=== PATIENT | female | born 1975 | race Two or more races ===

== ENCOUNTER 2016-07-22 06:40 | Inpatient (IN) | payer BC ==
[~2016-07-22] VITALS: Ht 165.1 cm; Wt 118.8 kg
--- NOTE | 2016-07-22 07:01 | NUR ---
PT PRESENTS TO ED WITH C/O INTERMITTENT SOB AND CHEST PAIN X1 WK. PT STATES PAIN RADIATES TO LOWER BACK. PT REPORTS LEFT ARM PAIN X1 DAY. PT REPORTS NAUSEA, DENIES V/D/C. RESPIRATIONS EVEN AND UNLABORED. NO ACUTE DISTRESS NOTED. BED IN LOW POSITION. CALL LIGHT WITHIN REACH.
--- NOTE | 2016-07-22 07:09 | NUR ---
REC'D REPORT FROM ITALO SYKES FOR CONTINUATION OF CARE. PT RECLINED ON [place] IN POSITION OF COMFORT. RESPS E/U. NO S/S OF DISTRESS NOTED. RT AT BEDSIDE FOR BLOOD GAS DRAW. WILL CONTINUE TO MONITOR.
--- NOTE | 2016-07-22 07:26 | NUR ---
MEDICATED ORDERED. PLEASE SEE EMR. ZOFRAN WITHHELD DUE TO PT STATING ALLERGY TO "ALL" ANTI-EMETICS. DR. FERNANDEZ MADE AWARE.
[2016-07-22 07:38] LABS: BASOPHIL % 0.9 % (0-2); PLATELET COUNT 277 x10^3mcL (130-400); RED CELL DISTRIBUTION WIDTH 13.1 % (11.5-14.5)
[2016-07-22 07:49] LABS: CARBON DIOXIDE 26.9 mmol/L (21-32); CHLORIDE SERUM 101 mmol/L (98-107); CREATININE SERUM 0.9 mg/dL (0.6-1.0); GFR1 > 60 mL/min; GLUCOSE SERUM 139 mg/dL (74-106); POTASSIUM SERUM 4.4 mmol/L (3.5-5.1); SODIUM SERUM 137 mmol/L (136-145)
[2016-07-22 08:00] LABS: ALBUMIN 3.7 g/dL (3.4-5.0); ALKALINE PHOSPHATASE 80 U/L (46-116); ALT/SGPT 30 U/L (14-59); AST/SGOT 45 U/L (15-37); BILIRUBIN TOTAL 0.4 mg/dL (0.20-1.00); C REACTIVE PROTEIN 0.4 mg/dL (<=0.9); TOTAL PROTEIN, SERUM 7.5 g/dL (6.4-8.2)
--- NOTE | 2016-07-22 08:02 | NUR ---
PT IN CT SCAN
[2016-07-22 08:06] LABS: CK-MB < 0.5 ng/mL (0-3.6); CREATINE KINASE 90 U/L (26-192)
[2016-07-22 08:08] LABS: T3 TOTAL 1.43 ng/mL
[2016-07-22 08:09] LABS: FREE T4 0.86 ng/dL (0.76-1.46); FREE THYROXINE INDEX 2.8 ug/dL (1.4-4.5); T4(THYROXINE) 8.6 ug/dL (4.7-13.3)
--- NOTE | 2016-07-22 08:21 | NUR ---
PT RESTING ON GURNEY IN POSITION OF COMFORT. RESPS E/U. NO S/S OF DISTRESS NOTED. VSS. CALL LIGHT W/IN REACH. PT DENIES PAIN OR DISCOMFORT TO IV SITE. NO S/S OF INFILTRATION OR INFECTION NOTED. WILL CONTINUE TO MONITOR.
[2016-07-22 08:46] LABS: ERYTHROCYTE SED RATE 14 mm/hr (0-20)
--- NOTE | 2016-07-22 08:58 | NUR ---
URINE SPECIMEN COLLECTED AND SENT TO LAB
[2016-07-22 08:59] LABS: microscopic required? NO
[2016-07-22 09:07] LABS: UA SPECIFIC GRAVITY <=1.005 (1.005-1.035); urine erythrocyte NEGATIVE (NEGATIVE)
--- NOTE | 2016-07-22 09:34 | NUR ---
PT REPORTS SHARP PAIN TO LFT UPPER CHEST. REPOSITIONED PT ON [facility]. DR. FERNANDEZ MADE AWARE.
[2016-07-22] MEDS ORDERED: ZIA10 (09:39)
[2016-07-22] MEDS ORDERED: ATENOLOL1 POW (09:39)
--- NOTE | 2016-07-22 09:39 | NUR ---
DR. FERNANDEZ AT BEDSIDE
[2016-07-22] MEDS ORDERED: PROAIR HFA8.5 GM (09:40)
[2016-07-22] MEDS ORDERED: CHILDREN'S5 MG/5 M1 (09:40)
[2016-07-22] MEDS ORDERED: BENAZEPRIL HYDR20 M1 (09:40)
--- NOTE | 2016-07-22 09:46 | NUR ---
MRSA SWAB COLLECTED AND SENT TO LAB
--- NOTE | 2016-07-22 09:49 | NUR ---
MEDICATED ORDERED. PLEASE SEE EMR.
[2016-07-22] MEDS ORDERED: ATENOLOL50 MG PO (10:19)
[2016-07-22] MEDS ORDERED: HYDROCHLOROTHIA25 MG PO (10:19)
[2016-07-22] MEDS ORDERED: BENAZEPRIL HYDR10 M1 PO (10:20)
[2016-07-22 10:40] LABS: CHOLESTEROL/HDL RATIO 3.5; MAGNESIUM 1.8 mg/dL (1.8-2.4); PHOSPHOROUS 3.1 mg/dL (2.5-4.9)
--- NOTE | 2016-07-22 10:47 | NUR ---
REPORT GIVEN TO ITALO PARKER FOR CONTINUATION OF CARE PRIMARY RN.
--- NOTE | 2016-07-22 11:41 | NUR ---
RECEIVED PT FROM ED. ARRIVED ON GURNEY BUT WAS ABLE TO AMBULATE WITHOUT DIFFICULTY TO BED. AAOx4. VSS- 125/74 HR 74 TEMP 98.6 RESP 20 O2 SAT 96 ON ROOM AIR. TELEBOX [address]. C/O OF HEADACHE /10. 20G TO THE RFA IS PATENT AND FLUSHING WELL. WAS ABLE TO USE THE RESTROOM TO VOID. CALM AND COOPERATIVE. DAUGHTER AT BEDSIDE. SKIN IS INTACTED. PULSES PALPABLE TO UPPER AND LOWER EXTREMEITIES. GOOD CIRCULATION WITH CAP REFILL OF LESS THAN 3 SECONDS. ORIENTED TO ROOM. CALL LIGHT WITHIN REACH. BED IN LOWEST POSITION. ENCOURAGED TO CALL FOR ASSISTANCE WHEN NEEDED. WILL GIVEN TYLENOL PRN PO FOR H/A. WILL CONTINUE TO MONITOR
[2016-07-22 12:15] VITALS: BP 125/74
[2016-07-22 12:20] LABS: AMPHETAMINE QUAL UR NONE DETECTED (NEG <=1000)
[2016-07-22 14:00] VITALS: BP 114/66
--- NOTE | 2016-07-22 14:41 | NUR ---
PT IS CURRENTLY LAYING IN BED ASLEEP. NO APPARENT SIGNS OF ACUTE DISTRESS NOTED AT THIS TIME. IV SITE INFUSING WELL. CALL LIGHT WITHIN REACH. BED IN LOWEST POSITION. WILL CONTINUE TO MONITOR
--- NOTE | 2016-07-22 16:38 | NUR ---
PT STATES THAT SHE IS STILL EXPERIENCING HEADACHE NOW IT HAS INCREASED / ENCOURAGED PT TO RELAX AND TO TAKE DEEP SLOW BREATHES. GIVING TORADOL PRN IVP. CALL LIGHT WITHIN REACH. WILL CONTINUE TO MONITOR
[2016-07-22 17:19] VITALS: BP 92/56
--- NOTE | 2016-07-22 19:56 | NUR ---
PATIENT'S PLAN OF CARE WAS DISCUSSED AND REVIEWED WITH FOOD SUPERVISOR: MARIA ISABEL NYE
--- NOTE | 2016-07-22 20:11 | NUR ---
RECEIVED PT IN BED NO CHEST PAIN AT THE MOMENT ON TELE 22 TAHT SHOWS NSR , PIV TO RFA INTACT INFUSING WELL NS AT 100ML/HR . CALL LIGHT WITHINPT'S REACH WILL CON'T TO MONITOR PT CLOSELY.
[2016-07-22 22:22] VITALS: BP 136/75
[2016-07-23 06:16] VITALS: BP 140/84
--- NOTE | 2016-07-23 06:22 | NUR ---
I HAVE REVIEWED THE DATA COLLECTION BY ARASH (NAME):MARIA ISABEL NYE ENTERED ON (DATE/TIME):200707/22/16 I CONCUR WITH THE DATA AND ANY EXCEPTIONS OR COMMENTS ARE LISTED BELOW:
--- NOTE | 2016-07-23 06:31 | NUR ---
NO CHANGES O0F CONDITION NOTED , PT'S IN BED AWAKE WATCHING TV DENY CHEST PAIN , PIV INTACT INFUSING WELL , TELE NSR.
[2016-07-23 06:53] LABS: PLATELET COUNT 253 x10^3mcL (130-400); RED CELL DISTRIBUTION WIDTH 12.7 % (11.5-14.5)
[2016-07-23 06:55] LABS: BASOPHIL % 0 % (0-2)
--- NOTE | 2016-07-23 07:23 | NUR ---
RECEIVED PT LAYING IN BED ASLEEP. NO APPARENT SIGNS OF ACUTE DISTRESS NOTED. IV SITE APPEARS PATENT AND IS INFUSING WELL. INFORMATION BOARD UPDATED. RESPIRATION EVEN AND UNLABORED. CALL LIGHT WITHIN REACH. BED IN THE LOWEST POSITION. WILL CONTINUE TO MONITOR
[2016-07-23 07:44] LABS: CHLORIDE SERUM 103 mmol/L (98-107); POTASSIUM SERUM 3.4 mmol/L (3.5-5.1); SODIUM SERUM 137 mmol/L (136-145)
[2016-07-23 07:45] LABS: CALCIUM 8.5 mg/dL (8.5-10.1); CREATININE SERUM 0.8 mg/dL (0.6-1.0); GFR1 > 60 mL/min; GLUCOSE SERUM 177 mg/dL (74-106); MAGNESIUM 1.9 mg/dL (1.8-2.4); PHOSPHOROUS 1.8 mg/dL (2.5-4.9)
[2016-07-23 09:20] VITALS: BP 140/84
[2016-07-23 09:52] VITALS: BP 124/66
--- NOTE | 2016-07-23 10:47 | NUR ---
PT WILL BE TAKEN DOWN BY RADIOLOGY STAFF. PT WAS SALINE LOCKED. NO APPARENT SIGNS OF ACUTE DISTRESSNOTED AT THIS TIME. WILL CONTINUE TO MONITOR
--- NOTE | 2016-07-23 12:00 | NUR ---
RESUMED CARE FOR Pt. AWAITING TO ARRIVE FROM RADIOLOGY.
--- NOTE | 2016-07-23 12:30 | NUR ---
Pt. RETURNED FROM RADIOLOGY REMAINS AAOX4. RESPIRATIONS EVEN AND UNLABORED. DENIES PAIN/DISCOMFORT. NECK WITH BAND AID CDI. RESUMED IVF TO IV AT RIGHT FOREARM PATENT AND INTACT. TELE IN PLACE. BED LOW/LOCKED. CALL LIGHT IN REACH
[2016-07-23 14:00] VITALS: BP 113/56
--- NOTE | 2016-07-23 14:45 | NUR ---
Pt. C/O NECK PAIN 3/10 SCALE TYLENOL GIVEN WILL CONTINUE TO MONITOR.
[2016-07-23 17:59] VITALS: BP 115/64
--- NOTE | 2016-07-23 18:10 | NUR ---
Pt. AAOX4. RESPIRATIONS EVEN AND UNLABORED.DENIES PAIN/DISCOMFORT. NO DISTRESS NOTED. IVF RUNNING TO IV AT RIGHT FOREARM PATENT AND INTACT. TELE IN PLACE. NECK BAND AID CDI. BED LOW/LOCKED. CALL LIGHT IN REACB.
--- NOTE | 2016-07-23 20:00 | NUR ---
PATIENT'S PLAN OF CARE WAS DISCUSSED AND REVIEWED WITH PEDIATRIC SPORTS MEDICINE SPECIALIST:MARIA ISABEL NYE
--- NOTE | 2016-07-23 20:35 | NUR ---
RECEIVED PT IN BED AAOX4 , PT DENY PAIN AT THE MOMENT , S/P US GUIDED NEEDLE ASPIRATION THYRIOD SITE WITH DRESSING C/D/I , PT DENY PAIN AT THE MOMENT , PIV INTACT INFUSING WELL , TELE NSR.
[2016-07-23 21:53] VITALS: BP 101/53
--- NOTE | 2016-07-23 22:17 | NUR ---
I HAVE REVIEWED THE DATA COLLECTION BY ARASH (NAME):MARIA ISABEL NYE ENTERED ON (DATE/TIME):07/23/16 I CONCUR WITH THE DATA AND ANY EXCEPTIONS OR COMMENTS ARE LISTED BELOW:
--- NOTE | 2016-07-24 02:18 | NUR ---
PT;S IN BED WITH EYES CLOSED , TELE NSR , PIV INTACT INFUSING WELL .
[2016-07-24 05:31] VITALS: BP 131/79
--- NOTE | 2016-07-24 06:23 | NUR ---
NO CHANGES OF CONDITION NOTED, ALL DUE MEDS GIVEN NO REACTION NOTED,PIV INTACT INFUSING WELL, TELE NSR .
[2016-07-24 06:39] LABS: BASOPHIL % 0.1 % (0-2); PLATELET COUNT 231 x10^3mcL (130-400); RED CELL DISTRIBUTION WIDTH 12.9 % (11.5-14.5)
[2016-07-24 07:10] LABS: CALCIUM 8.2 mg/dL (8.5-10.1); CARBON DIOXIDE 24.5 mmol/L (21-32); CHLORIDE SERUM 106 mmol/L (98-107); CREATININE SERUM 0.8 mg/dL (0.6-1.0); GFR1 > 60 mL/min; GLUCOSE SERUM 173 mg/dL (74-106); PHOSPHOROUS 3.4 mg/dL (2.5-4.9); POTASSIUM SERUM 3.8 mmol/L (3.5-5.1); SODIUM SERUM 139 mmol/L (136-145)
--- NOTE | 2016-07-24 07:10 | NUR ---
AAOX4 ABLE TO VERBALIZE NEEDS WITH CLEAR AND COHERENT SPEECH, REPORTS DISCOMFORT AT PUNCTURE SITE, DENIES SWALLOW DELAY OR DIFFICULTY, REPORTS HAVING SEVERAL ALLERGIES INCLUDING SEAFOOD, PORK, CHICKEN RESULTING IN "FLUSHED FACE" AND SEVERE ALLERGY TO CINNAMON WITH SEVERE SYMPTOMS INCLUDING "THROAT CLOSURE" CALL LIGHT WITHIN REACH, WILL CONTINUE TO PROVIDE CARE.
[2016-07-24 09:32] VITALS: BP 123/71
[2016-07-24] MEDS ORDERED: CLA10 PO (10:26)
[2016-07-24] MEDS ORDERED: PEP20 PO (10:27)
[2016-07-24] MEDS ORDERED: MEDDP PO (10:29)
[2016-07-24] MEDS ORDERED: MOT800 PO (10:38)
[2016-07-24 14:31] VITALS: BP 123/71
--- NOTE | 2016-07-24 15:24 | NUR ---
PATIENT DISCHARGED HOME, DISCHARGE INSTRUCTIONS REVIEWED WITH PATIENT AND DAUGHTER, INCLUDING FOLLOW APPOINTMENT WITH PCP ON 07/29/16, PATIENT AND DAUGHTER VERBALIZED UNDERSTANDING OF DISCHARGE INSTRUCTIONS. IV D/C'D, CATH TIP INTACT NO BLEEDING OR PHLEBITIS NOTED, COVERED WITH BANDAID. PATIENT AMBULATED DOWNSTAIRS WITH PRIMARY RN AND DAUGHTER.
--- NOTE | 2016-07-24 15:25 | NUR ---
LATE ENTRY FOR 0800: ROUNDS WITH DR HART AND MEDICAL TEAM, UPDATED PATIENT ON CURRENT POC.
== END 2016-07-24 15:24 | disposition home or self-care (01) | DRG 202 ==
LOC: ED 06:40 → DU 10:07 → MU 07-24 06:53
PROVIDERS: Specialist; ADMIT Family Medicine
PROC: 0GBH3ZX Excision of Right Thyroid Gland Lobe, Percutaneous Approach, Diagnostic (ICD-10-PCS; principal; 2016-07-23)
DX: J45.901 Unspecified asthma with (acute) exacerbation (principal); N17.0 Acute kidney failure with tubular necrosis; Z68.42 Body mass index [BMI] 45.0-49.9, adult; E66.01 Morbid (severe) obesity due to excess calories; M94.0 Chondrocostal junction syndrome [Tietze]; E07.9 Disorder of thyroid, unspecified; R74.0 Nonspecific elevation of levels of transaminase and lactic acid dehydrogenase [LDH]; E11.9 Type 2 diabetes mellitus without complications; I10 Essential (primary) hypertension; G43.909 Migraine, unspecified, not intractable, without status migrainosus; Z90.49 Acquired absence of other specified parts of digestive tract; Z88.8 Allergy status to other drugs, medicaments and biological substances
CPT/HCPCS: 36600; 82962; 83880; 84439; C9113; J1885; J1956; J2001; J2920; J2930; J3010; J7030; J7620; Q0092; Q9967